=== PATIENT | female | born 1990 | race Caucasian/White ===

== ENCOUNTER 2019-08-17 08:32 | Emergency (ER) | payer OTHER ==
[2019-08-17 08:54] LABS: #Basophils 0.1 thou/uL (0.0-0.2); #Eosinphils 0.1 thou/uL (0.0-0.7); #Monocytes 0.6 thou/uL (0.11-0.59); #Neutrophils 4.6 thou/uL (1.40-6.50); %Basophils 1.4 % (0.0-1.0); %Lymphocytes 35.4 % (21.0-51.0); %Monocytes 7.6 % (0.0-10.0); %Neutrophils 54.6 % (42.0-75.0); Hemoglobin 13.3 g/dL (12.0-16.0); Mean Corpuscular HGB CONC 33.9 g/dL (32.0-36.0); Mean Corpuscular Hemoglobin 31.7 pg (27.0-31.0); Mean Corpuscular Volume 93.7 fL (78.0-98.0); Mean Platelet Volume 6.2 fL (7.4-10.4); Platelet Count 364 thou/uL (130-400); RBC Distribution Width 11.1 % (11.5-14.5); Red Blood Cell (RBC) Count 4.21 mill/uL (4.20-5.40); White Blood Cell (WBC) Count 8.4 thou/uL (4.8-10.8)
[2019-08-17 09:07] LABS: Bacteria/HPF 2+ HPF (None Seen); Bilirubin Negative (Negative); Blood, Urine 2+ (Negative); Clarity Turbid (Clear); Glucose, Urine (Dipstick) Normal (Negative); Leukocyte 250 Leu/uL (Negative); Nitrite Negative (Negative); Protein, Urine (Dipstick) 20 mg/dL (Neg-Trace); Urobilinogen Normal mg/dL (Less than 2); WBC/HPF 21-50 HPF (0-3)
[2019-08-17 09:09] LABS: ALT (SGPT) 7 U/L (8-55); AST (SGOT) 11 U/L (5-34); Albumin 4.2 g/dL (3.5-5.0); Alkaline Phosphatase 45 U/L (40-110); Anion Gap 10 mmol/L (10-20); BUN (Urea Nitrogen) 8 mg/dL (7.0-18.7); Calc. Creatinine Clearance 0 mL/min (70-130); Calcium 8.5 mg/dL (7.8-10.44); Carbon Dioxide 24 mmol/L (22-29); Chloride 105 mmol/L (98-107); Estimated GFR-MDRD Greater than 90; Globulin 2.5 g/dL (2.4-3.5); Glucose 89 mg/dL (70-105); Potassium 3.9 mmol/L (3.5-5.1); Protein, Total 6.7 g/dL (6.0-8.3); Sodium 135 mmol/L (136-145)
--- NOTE | 2019-08-17 10:12 | ULT ---
ULTRASOUND PELVIC ULTRASOUND TRANSVAGINAL DOPPLER DUPLEX: DATE: 08/17/2019 HISTORY: 28-year-old female with first trimester vaginal bleeding TECHNIQUE: Transabdominal transducer and endovaginal transducer used to visualize intrapelvic contents with leon scale, color-flow, and spectral analysis. FINDINGS: Intrauterine gestational sac contains a yolk sac and embryonic pole. Wesley-rump length 9.3 mm: 7w 0d. Embryonic heart rate: 136 bpm A heterogeneously hypoechoic 2.3 x 1.6 x 0.8 cm lesion adjacent to the gestational sac represents sub chorionic hemorrhage. No free fluid in the cul-de-sac. Bilateral ovaries are of normal size, with blood flow. 1 x 0.7 x 0.7 cm misshapen right ovarian hypoechoic lesion probably represents a ruptured hemorrhagic corpus luteal cyst. IMPRESSION: 1. Live first trimester intrauterine gestation estimated to be 7 weeks 0 days gestational age. 2. Small subchorionic hemorrhage.
== END 2019-08-17 10:15 | disposition home or self-care (01) ==
LOC: ERS 08:32
DX: O20.0 Threatened abortion (principal); O23.41 Unspecified infection of urinary tract in pregnancy, first trimester; O99.341 Other mental disorders complicating pregnancy, first trimester; F32.9 Major depressive disorder, single episode, unspecified; Z79.899 Other long term (current) drug therapy; Z3A.01 Less than 8 weeks gestation of pregnancy
CPT/HCPCS: 36415; 76856; 80053; 81003; 81015; 84702; 85025; 86900; 86901

== ENCOUNTER 2020-04-03 12:21 | Inpatient (IN) | payer OTHER ==
[~2020-04-03 12:21] MED LIST: Bupivacaine/Epinephrine 0.25% 30 ML VIAL ONE
[2020-04-03] MEDS ORDERED: Ibuprofen 800 MG TAB PO PRN (12:49)
[2020-04-03] MEDS ORDERED: Butorphanol Tartrate 1 MG/ML VIAL SLOW IVP PRN (12:49)
[2020-04-03] MEDS ORDERED: Promethazine HCl 25 MG/ML VIAL IM PRN ×2 (12:49→13:28)
[2020-04-03] MEDS ORDERED: Ondansetron PF 4 MG/2 ML Vial IVP PRN ×2 (12:49→13:28)
[2020-04-03] MEDS ORDERED: Misoprostol 200 MCG TAB PR PRN (12:49)
[2020-04-03] MEDS ORDERED: hydrALAZINE 20 MG/ML VIAL SLOW IVP PRN ×2 (12:49→16:14)
[2020-04-03] MEDS ORDERED: NS / Oxytocin 40 units/1000ml 1,000 ML IV PRN (12:49)
[2020-04-03] MEDS ORDERED: Acetaminophen 500 MG TAB PO PRN (12:49)
[2020-04-03] MEDS ORDERED: Methylergonovine 0.2 MG/ML VIAL IM PRN (12:49)
[2020-04-03] MEDS ORDERED: Carboprost 250 MCG/ML AMP IM PRN (12:49)
[2020-04-03] MEDS ORDERED: Lidocaine 1% (PF) 30 ML VIAL SC PRN (12:49)
[2020-04-03 12:54] VITALS: BMI 31.6
[2020-04-03] MEDS ORDERED: Fentanyl 4 mcg/Bup 0.1% Cadd 100 ML ONE (12:56)
[2020-04-03] MEDS ORDERED: NS w/ Oxytocin 10 units 500 ML IV SCH (13:00)
[2020-04-03] MEDS ORDERED: Lactated Ringer's 1,000 ML IV SCH (13:00)
[2020-04-03 13:04] LABS: Hemoglobin 11.8 g/dL (12.0-16.0); Mean Corpuscular HGB CONC 33.7 g/dL (32.0-36.0); Mean Corpuscular Hemoglobin 31.4 pg (27.0-31.0); Mean Corpuscular Volume 93.1 fL (78.0-98.0); Mean Platelet Volume 8.6 fL (7.4-10.4); Platelet Count 264 thou/uL (130-400); Red Blood Cell (RBC) Count 3.77 mill/uL (4.20-5.40); White Blood Cell (WBC) Count 12.3 thou/uL (4.8-10.8)
[2020-04-03] MEDS ORDERED: Naloxone HCl 0.4 mg/ml Vial IVP PRN ×2 (13:28)
[2020-04-03] MEDS ORDERED: Lactated Ringer's 500 ML IV PRN (13:28)
[2020-04-03] MEDS ORDERED: EPHEDRINE 25 MG/5 ML SYRINGE SLOW IVP PRN (13:28)
[2020-04-03] MEDS ORDERED: diphenhydrAMINE 50 MG/ML VIAL IVP PRN (13:28)
[2020-04-03] MEDS ORDERED: Acetaminophen 325 MG TAB PO PRN (13:28)
[2020-04-03] MEDS ORDERED: Fentanyl 4 mcg/Bupivacaine 0.1% Cassette 100 ML EPIDURAL SCH (13:30)
[2020-04-03] MEDS ORDERED: Communication Order-Pharmacy FS SCH (13:30)
[2020-04-03 13:44] LABS: HBSAg Index 0.15 S/CO (0-0.99); Hep B Surf Ag Non-Reactive S/CO (NonReactive); Syphilis Antibody Nonreactive (Nonreactive); Syphilis Antibody Index 0.02 S/CO (<1.00 Non-Reactive)
--- NOTE | 2020-04-03 16:13 | PDOC.OPDEL ---
OB Operative/Delivery Note Delivery Dr/Surgeon: Marlene Pre-Delivery Diagnosis: active labor Procedure/Post Delivery Dx: spontaneous vaginal delivery Weeks gestation: 39 Anesthesia: epidural - Findings A Sex: female - 1 min: 9 - 5 min: 9 - Additional Findings/Plan Placenta delivered: spontaneous Repaired Obstetrical Laceration: 2nd degree Estimated blood loss: 100ml Post delivery plan: routine recovery
[2020-04-03] MEDS ORDERED: diphenhydrAMINE 25 MG CAP PO PRN (16:14)
[2020-04-03] MEDS ORDERED: Milk Of Magnesia 30 ML UDCUP PO PRN (16:14)
[2020-04-03] MEDS ORDERED: Preparation H Ointment 28 GM TUBE PR PRN (16:14)
[2020-04-03] MEDS ORDERED: Lanolin Ointment 7 GM TUBE TOP PRN (16:14)
[2020-04-03] MEDS ORDERED: Benzocaine-Menthol 82.5 ML CAN TOP PRN (16:14)
[2020-04-03] MEDS ORDERED: Bisacodyl 10 MG SUPP PR PRN (16:14)
[2020-04-03] MEDS ORDERED: NS / Oxytocin 40 units/1000ml 1,000 ML IV SCH (16:15)
[2020-04-03] MEDS: Docusate Calcium (SURFAK) 240 MG CAP PO SCH (20:43)
[2020-04-03] MEDS: Ferrous Sulfate 325 MG TAB PO SCH (23:44)
[2020-04-03] MEDS: Ibuprofen 800 MG TAB PO SCH (23:44)
[2020-04-04] MEDS: Ibuprofen 800 MG TAB PO SCH ×4 (00:22→17:18)
[2020-04-04] MEDS ORDERED: traMADol HCl 50 MG TAB PO PRN (01:15)
[2020-04-04] MEDS ORDERED: Adacel (T-DAP) 0.5 ML SYRINGE IM ONE (09:00)
[2020-04-04] MEDS ORDERED: Witch Hazel-Glycerin 1 EACH JAR TOP PRN (09:14)
[2020-04-04] MEDS: Docusate Calcium (SURFAK) 240 MG CAP PO SCH ×2 (09:15→21:08)
[2020-04-04] MEDS: Prenatal Vitamin 1 TAB PO SCH (09:15)
[2020-04-04] MEDS: Ferrous Sulfate 325 MG TAB PO SCH ×2 (09:26→17:15)
[2020-04-04 12:24] LABS: SARS-CoV-2 MS2 Positive; SARS-CoV-2 N Gene Negative; SARS-CoV-2 S Gene Negative; SARS-CoV-2 by NAA Not Detected (NotDetected); SARS-CoV-2 orf1ab Negative
[2020-04-05] MEDS: Ibuprofen 800 MG TAB PO SCH ×2 (00:55→09:16)
--- NOTE | 2020-04-05 07:24 | PDOC.PP ---
Post Progress Note Post Day #: 1-2 PO intake tolerated: yes Flatus: yes Ambulation: yes Vital Signs (12 hours) Temp Pulse Resp BP Pulse Ox 04/04/20 20:10 98.4 F 68 20 113/74 98 Weight Weight 202 lb - Physical Examination Abdominal: no distention, appropriately TTP Extremities: negative homans (B) Result Diagrams: 04/03/20 12:53 Additional Labs: Post Labs Hep Bs Antigen Non-Reactive S/CO (NonReactive) 04/03/20 12:53 Blood Type O POSITIVE 04/03/20 12:53 - Assessment/Plan Post day 2...doing well. D/c home today /Has f/u in 6 weeks.
[2020-04-05 08:04] VITALS: BP 126/80; TEMP 98.3
[2020-04-05] MEDS: Ferrous Sulfate 325 MG TAB PO SCH (08:34)
[2020-04-05] MEDS: Docusate Calcium (SURFAK) 240 MG CAP PO SCH (09:16)
[2020-04-05] MEDS: Prenatal Vitamin 1 TAB PO SCH (09:16)
== END 2020-04-05 13:45 | disposition home or self-care (01) | DRG 807 ==
LOC: L&D/OP 12:21 → L&D 16:41 → 3SW 18:14
PROVIDERS: ADMIT Obstetrics & Gynecology; ATTEND Obstetrics & Gynecology
PROC: 10E0XZZ Delivery of Products of Conception, External Approach (ICD-10-PCS; principal; 2020-04-03)
PROC: 0KQM0ZZ Repair Perineum Muscle, Open Approach (ICD-10-PCS; 2020-04-03)
DX: O70.1 Second degree perineal laceration during delivery (principal); Z37.0 Single live birth; Z3A.39 39 weeks gestation of pregnancy; Z20.828 Contact with and (suspected) exposure to other viral communicable diseases
CPT/HCPCS: 51702; 85027; 86780; 86850; 86900; 86901; 87340; 87635; 99285; U0003

== ENCOUNTER 2021-03-12 01:51 | Emergency (ER) | payer OTHER ==
[2021-03-12 02:21] LABS: #Basophils 0.1 thou/uL (0.0-0.2); #Eosinphils 0.1 thou/uL (0.0-0.7); #Lymphocytes 3.1 thou/uL (1.20-3.40); #Monocytes 0.8 thou/uL (0.11-0.59); #Neutrophils 3.6 thou/uL (1.40-6.50); %Basophils 1.8 % (0.0-1.0); %Eosinophils 1.6 % (0.0-10.0); %Monocytes 10.5 % (0.0-10.0); Mean Corpuscular HGB CONC 33.9 g/dL (32.0-36.0); Mean Corpuscular Hemoglobin 31.9 pg (27.0-31.0); Mean Platelet Volume 6.7 fL (7.4-10.4); Platelet Count 300 thou/uL (130-400); RBC Distribution Width 11.1 % (11.5-14.5); Red Blood Cell (RBC) Count 4.09 mill/uL (4.20-5.40); White Blood Cell (WBC) Count 7.8 thou/uL (4.8-10.8)
[2021-03-12 02:46] LABS: ALT (SGPT) 12 U/L (8-55); AST (SGOT) 18 U/L (5-34); Albumin 3.8 g/dL (3.5-5.0); Alkaline Phosphatase 41 U/L (40-110); Anion Gap 13 mmol/L (10-20); BUN (Urea Nitrogen) 11 mg/dL (7.0-18.7); Bilirubin, Total 0.4 mg/dL (0.2-1.2); Calc. Creatinine Clearance 0 mL/min (70-130); Calcium 8.7 mg/dL (7.8-10.44); Carbon Dioxide 20 mmol/L (22-29); Chloride 108 mmol/L (98-107); Globulin 2.3 g/dL (2.4-3.5); Glucose 110 mg/dL (70-105); Protein, Total 6.1 g/dL (6.0-8.3); Sodium 138 mmol/L (136-145)
[2021-03-12] MEDS ORDERED: Famotidine 20 MG TAB ONE (03:00)
[2021-03-12] MEDS ORDERED: Lidocaine Viscous Sol 2% 15 ml UD Cup ONE (03:00)
[2021-03-12] MEDS ORDERED: Mag-Al 1200 mg/1200 mg/30 ML UDCUP ONE (03:00)
[2021-03-12 05:13] LABS: Troponin I Less than 0.010 ng/mL (< 0.028)
[2021-03-12] MEDS ORDERED: Sucralfate 1 GM/10 ML UDCUP ONE (05:36)
== END 2021-03-12 06:11 | disposition home or self-care (01) ==
LOC: ERS 01:51
DX: R07.2 Precordial pain (principal); K29.70 Gastritis, unspecified, without bleeding; G43.909 Migraine, unspecified, not intractable, without status migrainosus; Z79.899 Other long term (current) drug therapy
CPT/HCPCS: 36415; 71045; 80053; 84484; 85025; 93005; 96374

== ENCOUNTER 2022-04-12 07:02 | Outpatient (CLI) | payer OTHER | END 2022-04-12 07:03 | disposition home or self-care (01) | LOC: BICULT 07:02 | PROVIDERS: ATTEND Family Medicine | DX: E04.1 Nontoxic single thyroid nodule (principal); R53.83 Other fatigue | CPT/HCPCS: 76536 ==

== ENCOUNTER 2022-09-11 09:02 | Emergency (ER) | payer OTHER ==
[2022-09-11] MEDS ORDERED: Ketorolac Tromethamine 30 MG/ML VIAL ONE (10:47)
== END 2022-09-11 11:32 | disposition home or self-care (01) ==
LOC: ERS 09:02
DX: S43.402A Unspecified sprain of left shoulder joint, initial encounter (principal); Y04.2XXA Assault by strike against or bumped into by another person, initial encounter
CPT/HCPCS: 96372; J1885

== ENCOUNTER 2023-04-26 09:58 | Outpatient (CLI) | payer OTHER | END 2023-04-26 09:59 | disposition home or self-care (01) | LOC: CT 09:58 | PROVIDERS: ATTEND Family Medicine | DX: S09.90XA Unspecified injury of head, initial encounter (principal) | CPT/HCPCS: 70450 ==

== ENCOUNTER 2023-09-14 09:34 | Outpatient (CLI) | payer OTHER | END 2023-09-14 09:35 | disposition home or self-care (01) | LOC: SCSMRI 09:34 | PROVIDERS: ATTEND Family Medicine | DX: S09.90XD Unspecified injury of head, subsequent encounter (principal); F07.81 Postconcussional syndrome; F32.9 Major depressive disorder, single episode, unspecified; J34.89 Other specified disorders of nose and nasal sinuses | CPT/HCPCS: 70553 ==